=== PATIENT | female | born 1955 | race Caucasian/White ===

== ENCOUNTER 2024-04-05 09:02 | Inpatient (IN) | payer OTHER ==
[2024-04-05 09:54] VITALS: BMI 16.8
[2024-04-05] MEDS ORDERED: LOPERAMIDE HCL 2 MG CAPSULE PO PRN (10:11)
[2024-04-05] MEDS ORDERED: BENZOCAINE/MENTHOL (CHLORASEPTIC ) LOZENGE MM PRN (10:11)
[2024-04-05] MEDS ORDERED: NALOXONE (NARCAN) HCL 4 MG/0.1 ML SPRAY NS PRN (10:11)
[2024-04-05] MEDS ORDERED: NALOXONE HCL 0.4 MG/ML VIAL IM PRN (10:11)
[2024-04-05] MEDS ORDERED: guaiFENesin 600 MG TABLET.ER (FP) PO PRN (10:11)
[2024-04-05] MEDS ORDERED: MAG HYDROX/AL HYDROX/SIMETH 30 ML UNIT-DOSE CUP PO PRN (10:11)
[2024-04-05] MEDS ORDERED: MAGNESIUM HYDROX 2400MG/30ML ORAL SUSPENSION 30 ML CUP PO PRN (10:11)
[2024-04-05] MEDS ORDERED: BENZONATATE 200 MG CAPSULE PO PRN (10:11)
[2024-04-05] MEDS ORDERED: ONDANSETRON *ODT* 4 MG TABLET SL PRN (10:11)
[2024-04-05] MEDS ORDERED: ACETAMINOPHEN 325 MG TABLET (FP) PO PRN (10:11)
[2024-04-05] MEDS ORDERED: BISMUTH SUBSALICYLATE 524 MG/30 ML PO PRN (10:11)
[2024-04-05] MEDS ORDERED: POLYETHYLENE GLYCOL (HEALTHYLAX) 3350 17 GM PACKET PO PRN (10:11)
[2024-04-05] MEDS ORDERED: P-EPHED 60MG/TRIPROLIDI 2.5MG TABLET PO PRN (10:11)
[2024-04-05] MEDS ORDERED: NICOTINE POLACRILEX 2 MG GUM BUC PRN (10:11)
[2024-04-05] MEDS ORDERED: NICOTINE POLACRILEX 2 MG LOZENGE BC PRN (10:11)
[2024-04-05] MEDS ORDERED: METOPROLOL TARTRATE 25 MG TABLET (FP) ONE (10:58)
[2024-04-05] MEDS: METOPROLOL TARTRATE 25 MG TABLET (FP) PO ONE (11:00)
[2024-04-05] MEDS: cloNIDine HCL 0.1 MG TABLET PO PRN (12:35)
[2024-04-05] MEDS: ATORVASTATIN CA 10 MG TABLET (FP) PO SCH (22:32)
[2024-04-05] MEDS: MELATONIN 5 MG TABLETS PO SCH (22:32)
[2024-04-05] MEDS: THIAMINE 100 MG TABLET PO SCH (22:32)
[2024-04-06] MEDS: IBUPROFEN 400 MG TABLET (FP) PO PRN (08:51)
[2024-04-06] MEDS: PRENATAL VITAMINS W/ FOLIC ACID TABLET (FP) PO SCH (09:21)
[2024-04-06] MEDS: ASPIRIN COATED 81 MG TABLET.EC PO SCH (09:21)
[2024-04-06 11:26] LABS: HEMATOCRIT 45.9 % (32.4-45.2); HEMOGLOBIN 15.2 GM/dL (10.7-15.3); MCH 28.2 pg (25.7-33.7); MCHC 33.1 g/dl (32.0-36.0); MEAN CELL VOLUME 85.4 fl (80-96); MEAN PLT VOLUME 9.6 fl (7.5-11.1); PLATELET COUNT 280 10^3/uL (134-434); RBC 5.38 M/mm3 (3.60-5.2); RDW 14.8 % (11.6-15.6); WHITE BLOOD COUNT 11.4 K/mm3 (4.0-10.0)
[2024-04-06 11:29] LABS: POTASSIUM 4.4 mmol/L (3.5-5.1)
[2024-04-06 11:37] LABS: CALCIUM 9.9 mg/dL (8.5-10.1)
[2024-04-06 11:38] LABS: ALBUMIN 4.1 g/dl (3.4-5.0); BLOOD UREA NITROGEN 10.4 mg/dL (7-18)
[2024-04-06 11:40] LABS: BILIRUBIN,TOTAL 0.7 mg/dL (0.2-1); TOT PROT 7.8 g/dl (6.4-8.2)
[2024-04-06 11:41] LABS: CREATININE 0.6 mg/dL (0.55-1.3)
[2024-04-06] MEDS: METOPROLOL TARTRATE 50 MG TABLET (FP) PO ONE (17:49)
[2024-04-06] MEDS: MIRTAZAPINE 15 MG TABLET (FP) PO SCH (21:31)
[2024-04-06] MEDS: cloNIDine HCL 0.1 MG TABLET PO ONE (21:31)
[2024-04-06] MEDS ORDERED: MIRTAZAPINE 15 MG TABLET (FP) PO SCH (22:00)
[2024-04-07] MEDS: amLODIPine BESYLATE 10 MG TABLET (FP) PO SCH (09:28)
[2024-04-07] MEDS: hydrOXYzine PAMOATE 25 MG CAPSULE (FP) PO ONE (11:35)
[2024-04-07 14:45] LABS: EPI CELLS 10 /uL (0-25.1); HYALINE CASTS 2 /uL (0-3.1); PH,URINE 5.5 (5.0-8.0); URINE APPEARANCE CLOUDY; URINE BACTERIA >9,000 /uL (0-1359); URINE BILIRUBIN NEGATIVE (NEGATIVE); URINE COLOR YELLOW; URINE GLUCOSE (UA) 1+ (NEGATIVE); URINE KETONE TRACE (NEGATIVE); URINE LEUK ESTERASE NEGATIVE (NEGATIVE); URINE NITRITE NEGATIVE (NEGATIVE); URINE PROTEIN 3+ (NEGATIVE); URINE RBC 8 /uL (0-23.9); URINE UROBILINOGEN 0.2 mg/dL (0.2-1.0); URINE WBC 43 /uL (0-25.8)
[2024-04-07] MEDS: metoPROLOL SUCCINATE 25 MG TAB.SR.24H (FP) PO SCH (17:07)
[2024-04-07] MEDS: IBUPROFEN 600 MG TABLET (FP) PO PRN (17:08)
[2024-04-07] MEDS ORDERED: METOPROLOL TARTRATE 25 MG TABLET (FP) PO SCH (18:00)
[2024-04-07 22:34] VITALS: RESP 16
[2024-04-08 13:10] VITALS: BP 152/64; PULSE 80; TEMP 97.7
== END 2024-04-08 15:11 | disposition home or self-care (01) | DRG 897 ==
LOC: YASAS 09:02 → Y3N 11:17
PROVIDERS: ADMIT Allergy & Immunology; ATTEND Family Medicine Addiction Medicine
PROC: HZ2ZZZZ Detoxification Services for Substance Abuse Treatment (ICD-10-PCS; principal; 2024-04-05)
DX: F11.20 Opioid dependence, uncomplicated (principal); F17.210 Nicotine dependence, cigarettes, uncomplicated; E78.5 Hyperlipidemia, unspecified; I10 Essential (primary) hypertension; Z62.810 Personal history of physical and sexual abuse in childhood; Z63.8 Other specified problems related to primary support group; Z86.73 Personal history of transient ischemic attack (TIA), and cerebral infarction without residual deficits
CPT/HCPCS: 36415; 80053; 80305; 80307; 81003; 85027; 86780; 93005; 93010